=== PATIENT | male | born 1970 | race Caucasian/White ===

== ENCOUNTER 2019-09-22 22:02 | Inpatient (IN) | payer OTHER ==
[~2019-09-22] VITALS: Ht 180.3 cm; Wt 78.0 kg
[2019-09-22 22:03] VITALS: BP 124/82
--- NOTE | 2019-09-22 22:25 | NUR ---
PATIENT NOTIFIED OF THE NEED FOR URINE SAMPLE. EDUCATION PROVIDED REGARDING STRAIGHT CATH IF UNABLE TO URINATE AT BEDSIDE
[2019-09-22 22:29] LABS: ABSOLUTE NEUTROPHILS 7.9 thou/uL (1.4-8.2); BASOPHILS 0.5 % (0.0-2.0); EOSINOPHILS 1.4 % (0.0-3.0); HEMATOCRIT 45.5 % (42.0-52.0); HEMOGLOBIN 15.7 gm/dL (14.0-18.0); LYMPHOCYTES 12.2 % (24.0-44.0); MCHC 34.6 g/dL (28.0-37.0); MCV 98.2 fL (80.0-100.0); MONOCYTES 3.7 % (1.0-8.0); PLATELET COUNT 336 thou/uL (150-400); POLYS 82.2 % (36.0-66.0); RBC 4.63 mil/uL (4.50-6.00); RDW 12.2 % (10.5-14.5); WBC 9.6 thou/uL (4.0-11.0)
[2019-09-22 22:37] LABS: CALCIUM 10.1 mg/dL (8.5-10.1); CREATININE 1.2 mg/dL (0.7-1.3); POTASSIUM 3.8 mmol/L (3.5-5.1)
[2019-09-22 22:43] LABS: ALBUMIN 4.6 g/dL (3.4-5.0); TOTAL BILIRUBIN 1.4 mg/dL (<0.1-1.0); TOTAL PROTEIN 8.4 g/dL (6.4-8.2)
[2019-09-23] VITALS (7 sets, daily range): BP systolic 141–159; BP diastolic 90–98
[2019-09-23 00:38] LABS: URINE BILIRUBIN NEGATIVE (Negative); URINE BLOOD NEGATIVE (Negative); URINE CLARITY CLEAR; URINE COLOR YELLOW; URINE GLUCOSE-RANDOM* NEGATIVE (Negative); URINE KETONES NEGATIVE (Negative); URINE LEUKOCYTES-REFLEX NEGATIVE (Negative); URINE NITRITE-REFLEX NEGATIVE (Negative); URINE PROTEIN (DIPSTICK) TRACE (Negative); URINE SPECIFIC GRAVITY 1.025 (1.005-1.035); URINE UROBILINOGEN 0.2 E.U./dl (0.2-1.0)
--- NOTE | 2019-09-23 03:58 | NUR ---
New pt arrived unit from the ER with abd pain. pt is a&ox4. ambulates with 1 assist. pt was unsteady and very sleepy. pt has +bowel sounds and stated that he last had a bowel mov't 09/22. pt is npo and is not very happy but understands why he has to be. mouth swabs were given to pt and he felt better. pt stated that he drinks a 5th of whisky typically everyday. pt is on CIWA scale and scores a 2 at the moment from mild sweats. pt stated, his last drink was the morning of 09/22. pt is pleasant, cooperative and approp. no s/s of acute distress is noted. fall prec in place and consents signed. will cont to monitor for any changes
[2019-09-23 10:35] LABS: AMP/METHAMP POSITIVE (Negative); BARBITURATES Negative (Negative); BENZODIAZEPINES Negative (Negative); COCAINE Negative (Negative); METHADONE Negative (Negative); OPIATES POSITIVE (Negative); PCP Negative (Negative)
--- NOTE | 2019-09-23 11:30 | NUR ---
Received awake on bed. Due medications given as prescribed. Drowsy but rousable. On nothing per orem- pt informed and aware. On room air. With NS at 100cc/hr, infusing well at L AC- intact and flushing well. CIWA monitoring continued. Assisted in ADLs. Vital signs stable. Pt seen by Dr Herrera- regular diet ordered. No signs of agitation or restlessness noted from the patient this AM, cooperative with care.
== END 2019-09-23 19:46 | disposition home or self-care (01) | DRG 392 ==
LOC: ER 22:02 → 4W 09-23 01:13 → EROBS 09-23 01:13 → 4W 09-23 02:18
PROVIDERS: Emergency Medicine Emergency Medical Services; Nurse Practitioner Acute Care; ADMIT Hospitalist
DX: K29.20 Alcoholic gastritis without bleeding (principal); K56.7 Ileus, unspecified; F17.210 Nicotine dependence, cigarettes, uncomplicated
CPT/HCPCS: 10040

== ENCOUNTER 2019-11-06 18:38 | Emergency (ER) | payer OTHER ==
[~2019-11-06] VITALS: Ht 180.3 cm; Wt 79.4 kg
[2019-11-06 19:59] LABS: ABSOLUTE NEUTROPHILS 5.3 thou/uL (1.4-8.2); MCV 95.9 fL (80.0-100.0); WBC 6.6 thou/uL (4.0-11.0)
[2019-11-06 20:01] LABS: BASOPHILS 0.7 % (0.0-2.0); HEMATOCRIT 38.9 % (42.0-52.0); HEMOGLOBIN 13.7 gm/dL (14.0-18.0); LYMPHOCYTES 10.8 % (24.0-44.0); MCH 33.8 pg (26.0-34.0); MCHC 35.2 g/dL (28.0-37.0); MONOCYTES 6.3 % (1.0-8.0); PLATELET COUNT 254 thou/uL (150-400); POLYS 79.2 % (36.0-66.0); RBC 4.06 mil/uL (4.50-6.00); RDW 11.8 % (10.5-14.5)
[2019-11-06 20:14] LABS: CALCIUM 9.1 mg/dL (8.5-10.1); POTASSIUM 4.1 mmol/L (3.5-5.1)
[2019-11-06 20:18] LABS: ALBUMIN 3.5 g/dL (3.4-5.0); TOTAL BILIRUBIN 0.6 mg/dL (<0.1-1.0); TOTAL PROTEIN 7.1 g/dL (6.4-8.2)
[2019-11-06] MEDS ORDERED: CLEOCIN HCL150 MG PO (23:04)
[2019-11-06] MEDS ORDERED: AUGMENTIN 875-1 EACH PO ×2 (23:04→23:06)
[2019-11-06] MEDS ORDERED: NORCO 7.5-3251 EACH PO (23:04)
[2019-11-06 23:12] VITALS: BP 141/80
== END 2019-11-06 23:15 | disposition home or self-care (01) ==
LOC: ER 18:38
PROVIDERS: Physician Assistant
DX: L02.31 Cutaneous abscess of buttock (principal); I10 Essential (primary) hypertension; F17.210 Nicotine dependence, cigarettes, uncomplicated; Z90.89 Acquired absence of other organs

== ENCOUNTER 2021-01-15 12:50 | Inpatient (IN) | payer OTHER ==
[~2021-01-15] VITALS: Ht 180.3 cm; Wt 79.4 kg
[2021-01-15 12:50] VITALS: BP 171/115
[~2021-01-15 12:50] MED LIST: AUGMENTIN 875-1 EACH PO; CLEOCIN HCL150 MG PO; NORCO 7.5-3251 EACH PO
[2021-01-15 13:21] LABS: ANION GAP 7 mmol/L (7-16); BUN 23 mg/dL (7-18); CALCIUM 9.5 mg/dL (8.5-10.1); CHLORIDE 101 mmol/L (98-107); CO2 29 mmol/L (21-32); CREATININE 1.1 mg/dL (0.7-1.3); GLUCOSE 141 mg/dL (74-106); POTASSIUM 3.7 mmol/L (3.5-5.1); SODIUM 137 mmol/L (136-145)
[2021-01-15 13:29] LABS: ALBUMIN 4.4 g/dL (3.4-5.0); AMYLASE 37 U/L (25-115); DIRECT BILIRUBIN 0.3 mg/dL (<0.1-0.2); LIPASE 57 U/L (73-393); SGOT 21 U/L (15-37); SGPT 31 U/L (16-63); TOTAL PROTEIN 7.7 g/dL (6.4-8.2); TROPONIN-I <0.06 ng/mL (<0.06)
[2021-01-15 14:32] LABS: ABSOLUTE NEUTROPHILS 7.2 thou/uL (1.4-8.2); BASOPHILS 0.3 % (0.0-2.0); HEMATOCRIT 42.9 % (42.0-52.0); HEMOGLOBIN 14.9 gm/dL (14.0-18.0); LYMPHOCYTES 7.3 % (24.0-44.0); MCH 33.9 pg (26.0-34.0); MCHC 34.6 g/dL (28.0-37.0); MCV 97.9 fL (80.0-100.0); MONOCYTES 4.8 % (1.0-8.0); PLATELET COUNT 342 thou/uL (150-400); POLYS 86.6 % (36.0-66.0); RBC 4.38 mil/uL (4.50-6.00); RDW 12.5 % (10.5-14.5); WBC 8.3 thou/uL (4.0-11.0)
[2021-01-15 15:35] LABS: MAGNESIUM 1.9 mg/dL (1.8-2.4)
[2021-01-15 15:36] LABS: FOLIC ACID 15.2 ng/mL (8.6-58.9)
[2021-01-15 16:00] VITALS: BP 171/108
--- NOTE | 2021-01-15 16:04 | EKG ---
[place] [address] [facility] [place] [address] ELECTROCARDIOGRAM REPORT Name: CONOR SILVER Room #: 453-P ADM IN M.R.#: [id number] Admission: 01/15/21 Attend Phys: Mera Leary MD Discharge: Date of : 72 Report #: [id number] [facility] ED Test Date: 2021-01-15 Test Time: 13:36:35 Pat Name: CONOR SILVER Department: Room: [facility] Gender: M Membership Advisor: : [id number] Requested By: Juliano Menard Order Number: [id number] MD: Jeferson Coker Measurements Intervals [place] Rate: 74 P: 84 NV: 163 QRS: 50 QRSD: 102 T: 57 QT: 423 QTc: 470 Interpretive Statements Sinus rhythm Right atrial enlargement Probable left ventricular hypertrophy J Point elev, probable normal early repol pattern Baseline wander in lead(s) V3 No previous ECG available for comparison Electronically Signed On 01-15-2021 16:04:29 [employer]CHITECT by Jeferson Coker [email or web address] <ELECTRONICALLY SIGNED> By: Jeferson Coker MD, [facility] 01/15/21 1604 1336 35 Jeferson Coker MD, FACC /EPI
[2021-01-15 16:15] VITALS: BP 186/117
--- NOTE | 2021-01-15 17:42 | NUR ---
ASSUMED CARE OF PATIENT APPROX 1610. PT A&OX4, VSS, DENIES PAIN. PATIENT HAS NG TUBE LEFT NARE WITH MOBILE VAC. PATIENT ROOM AIR, IV RIGHT FOREARM. NO SIGNS OF DISTRESS. WILL CONTINUE TO MONITOR.
[2021-01-15 20:30] VITALS: BP 174/122
[2021-01-15 21:30] VITALS: BP 171/100
[2021-01-16 00:25] VITALS: BP 168/100
[2021-01-16 01:06] LABS: GLYCOHEMOGLOBIN (HGB A1C) 4.9 % (4.8-5.6)
[2021-01-16 02:06] VITALS: BP 155/104; BP 155/194
--- NOTE | 2021-01-16 04:10 | NUR ---
PT DENIED PAIN/N/V SO FAR.PT'S BP ELEVATED AT START OF SHIFT,PRN HYDRALAZINE GIVEN ,NOT EFFECTIVE.DR BISWAS PUT IN A NEW ORDER FOR ENALAPRIAT IVP,PT HAD A MILD REACTION(SKIN REDNESS) ,MECHANICAL ASSEMBLY ON DUTY NOTIFIED,MED DC'D.PT STATED THAT HE FELT FINE WHEN ASKED.PT STILL NPO.PT STATED THAT HE IS SO HUNGRY,PT EDUCATED ON HIS DISEASE PROCESS.NG TUBE TO HIS R NARE CONNECTED TO LOW INTERMITTENT SUCTIONING,BROWN OUTPUT NOTED IN THE CANNISTER.PT SLEEPING MOST OF THE NIGHT.CALL LIGHT WITHIN REACH.
[2021-01-16 05:21] LABS: BASOPHILS 0.4 % (0.0-2.0); HEMATOCRIT 39.8 % (42.0-52.0); HEMOGLOBIN 13.6 gm/dL (14.0-18.0); LYMPHOCYTES 13.5 % (24.0-44.0); MCH 33.6 pg (26.0-34.0); MCHC 34.2 g/dL (28.0-37.0); MCV 98.3 fL (80.0-100.0); MONOCYTES 4.4 % (1.0-8.0); PLATELET COUNT 292 thou/uL (150-400); POLYS 79.7 % (36.0-66.0); RBC 4.05 mil/uL (4.50-6.00); RDW 12.6 % (10.5-14.5); WBC 7.5 thou/uL (4.0-11.0)
[2021-01-16 05:36] LABS: CALCIUM 8.3 mg/dL (8.5-10.1); CREATININE 0.9 mg/dL (0.7-1.3); MAGNESIUM 1.7 mg/dL (1.8-2.4); POTASSIUM 3.8 mmol/L (3.5-5.1)
[2021-01-16 09:07] VITALS: BP 153/110
--- NOTE | 2021-01-16 11:10 | NUR ---
Assumed care of pt at 0700. Pt a&ox4. NG tube in place. Pt states he is not passing any gas. Bowel sounds still absent. IVF infusing. Small amount of ice chips allowed per provider order. Pt uses urinal. Call light within reach. Will continue to monitor.
[2021-01-16 16:45] VITALS: BP 179/116
[2021-01-16 20:05] VITALS: BP 174/100
[2021-01-16 22:40] LABS: URINE BILIRUBIN NEGATIVE (Negative); URINE BLOOD NEGATIVE (Negative); URINE CLARITY CLEAR; URINE COLOR YELLOW; URINE GLUCOSE-RANDOM* NEGATIVE (Negative); URINE KETONES NEGATIVE (Negative); URINE LEUKOCYTES-REFLEX NEGATIVE (Negative); URINE NITRITE-REFLEX NEGATIVE (Negative); URINE PROTEIN (DIPSTICK) NEGATIVE (Negative); URINE SPECIFIC GRAVITY 1.015 (1.005-1.035); URINE UROBILINOGEN 0.2 E.U./dl (0.2-1.0)
--- NOTE | 2021-01-17 03:16 | NUR ---
PT DENIED PAIN SO FAR.PT'S BP STILL ELEVATED THIS SHIFT,PRN BP MED GIVEN.PT TOLERATING FULL LIQUIDS DIET,LOOKING FORWARD TO BE ADVANCED TO REG DIET IN THE AM.UP ADLIB IN HIS ROOM.URINAL AT BEDSIDE WITH ADEQUATE URIN OUTPUT.UA GOTTEN AND SENT TO THE LAB.IVF INFUSING ON HIS RAC.CALL LIGHT WITHIN REACH.
[2021-01-17 03:20] VITALS: BP 150/88
[2021-01-17 04:20] VITALS: BP 150/88
[2021-01-17 05:43] LABS: ALBUMIN 3.1 g/dL (3.4-5.0); CALCIUM 8.4 mg/dL (8.5-10.1); CREATININE 0.8 mg/dL (0.7-1.3); MAGNESIUM 1.6 mg/dL (1.8-2.4); PHOSPHORUS 2.5 mg/dL (2.5-4.9); POTASSIUM 3.7 mmol/L (3.5-5.1)
[2021-01-17 09:21] VITALS: BP 173/88
--- NOTE | 2021-01-17 11:04 | NUR ---
PT A&OX4, VSS, DENIES PAIN AT THIS TIME. PATIENT SLEEPING, EASY TO AROUSE AND ANSWER QUESTIONS. CLONIDINE STARTED TODAY, NS DISCONTINUED. NO SIGNS OF DISTRESS. PATIENT TOLERATING FULL LIQUIDS AND ADVANCED TO REG DIET. NO NG TUBE TODAY. WILL CONTINUE TO MONITOR.
[2021-01-17 15:56] VITALS: BP 166/96
[2021-01-17 19:48] VITALS: BP 154/97
--- NOTE | 2021-01-18 02:03 | NUR ---
PT AMBULATING TO BATHROOM INDEPENDENTLY AND IS TOLERATING WELL. DENIES PAIN. DENIES NAUSEA. RESTING COMFORTABLY. NO NEEDS VOICED. CALL LIGHT WITHIN REACH. FREQUENT OBSERVATION.
[2021-01-18 08:09] VITALS: BP 167/104
[2021-01-18 09:15] VITALS: BP 181/101
[2021-01-18 13:25] VITALS: BP 164/103
[2021-01-18] MEDS ORDERED: NORVASC10 MG PO (13:32)
[2021-01-18] MEDS ORDERED: CLONIDINE HCL0.1 MG PO (13:34)
[2021-01-18 14:17] VITALS: BP 181/101
--- NOTE | 2021-01-18 14:44 | NUR ---
PT ADMITTED RELATED TO SMALL BOWEL OBSTRUCTION. CM REVIEWED CHART AND SPOKE WITH CARE TEAM. CM CALLED AND SPOKE WITH PT AT BEDSIDE THIS DAY. PT APPEARED TO BE A&O X4. CM ROLE INTRODUCED. PT INDICATED HE LIVES IN A HOUSE WITH FRIENDS. PT INDICATED THAT THERE IS A FULL FLIGHT TO THE BASEMENT WHERE HE STAYS. 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 PT INDICATED HE IS PATIENT PAY AND HAS NO PCP. CM PROVIDED PT WITH [employer] [facility]. PT INDICATED HE CAN AFFORD TO FILL ANY NEW MEDS UPON DC. CARE TEAM INDICATED THAT HE IS MEDICALLY STABLE TO DC HOME THIS DAY. NO OTHER CM INTERVENTION INDICATED. CASE CLOSED.
[2021-01-18 14:45] VITALS: BP 181/101
--- NOTE | 2021-01-18 15:30 | NUR ---
PT ASSESSED AT START OF SHIFT. BOWEL OBSTRUCTION RESOLVED. BP ELEVATED AND DR. MURILLO TREATED W/ 2 DIFFERENT MEDICATIONS. TEACHING DONE BY RN AND MD FOR PT TO FOLLOW UP THE NEXT DAY W/ MEDICAL CARE FOR HTN - HE WAS GIVEN INFO FROM CASE MGMT OF PLACES TO GO. HE STATED HE WOULD. HE ALSO HAS BP MACHINE TO CHECK BP AT HOME AND GIVE CLONIDINE NEEDED IN ADDITION TO THE NORVASC.
== END 2021-01-18 15:00 | disposition home or self-care (01) | DRG 390 ==
LOC: ER 12:50 → EROBS 14:36 → 4W 15:54
PROVIDERS: Emergency Medicine; Hospitalist; Nurse Practitioner; ADMIT Hospitalist; ATTEND Hospitalist
PROC: 0D9670Z Drainage of Stomach with Drainage Device, Via Natural or Artificial Opening (ICD-10-PCS; principal; 2021-01-16)
DX: K56.50 Intestinal adhesions [bands], unspecified as to partial versus complete obstruction (principal); I16.0 Hypertensive urgency; F17.210 Nicotine dependence, cigarettes, uncomplicated; E78.5 Hyperlipidemia, unspecified; I10 Essential (primary) hypertension; F19.10 Other psychoactive substance abuse, uncomplicated; Z91.14 Patient's other noncompliance with medication regimen; Z79.899 Other long term (current) drug therapy; Z72.89 Other problems related to lifestyle
CPT/HCPCS: 10040